=== PATIENT | female | born 1975 ===

== ENCOUNTER 2018-03-26 06:51 | Day surgery (SDC) | payer OTHER ==
[2018-03-26 07:11] VITALS: BMI 33.8
[2018-03-26] MEDS ORDERED: Propofol 10 mg/ml Inj (20 ML) ONE ×2 (08:24→08:37)
[2018-03-26] MEDS ORDERED: Lactated Ringer's 500 ML IV SCH (08:30)
[2018-03-26] MEDS ORDERED: Lactated Ringer's 1,000 ML IV ONE (08:30)
--- NOTE | 2018-03-26 08:31 | CP.SDSHP ---
Same Day Surgery H & P - History Proposed Procedure: egd Pre-Op Diagnosis: see notes - Previous Medical/Surgical History Misc: Other Pain: 4.Moderate Pain - Allergies Allergies: Allergies No Known Allergies Allergy (Verified 03/26/18 07:11) - Physical Exam General Appearance: n Vital Signs: Vital Signs 03/26/18 07:19 Temperature 98.2 F Pulse Rate 73 Respiratory 16 Rate Blood Pressure 131/82 O2 Sat by Pulse 100 Oximetry Mental Status: Alert & Oriented x3 Neuro: WNL Heart: WNL Lungs: WNL GI: Other - {Optional Preform as Required} Breast: WNL Abdomen: Other Rectal: Other Integument: WNL : WNL Ortho: Other ENT: WNL - Impression Pt. Evaluated Today:Candidate for Anesthesia & Procedure: Yes - Date & Time Time: 08:30 Short Stay Discharge - Short Stay Discharge Admitting Diagnosis/Reason for Visit: DYSPEPSIA / NAUSEA Disposition: HOME/ ROUTINE
[2018-03-26] MEDS ORDERED: Belladonna-Phenobarbital PO STA ×2 (08:33→09:56)
--- NOTE | 2018-03-26 08:34 | CP.SDSHP ---
Same Day Surgery H & P - History Proposed Procedure: EGD Pre-Op Diagnosis: SEE NOTES - Previous Medical/Surgical History Misc: Other Pain: 4.Moderate Pain - Allergies Allergies: Allergies No Known Allergies Allergy (Verified 03/26/18 07:11) - Physical Exam General Appearance: N Vital Signs: Vital Signs 03/26/18 07:19 Temperature 98.2 F Pulse Rate 73 Respiratory 16 Rate Blood Pressure 131/82 O2 Sat by Pulse 100 Oximetry Mental Status: Alert & Oriented x3 Neuro: WNL Heart: WNL Lungs: WNL GI: Other - {Optional Preform as Required} Breast: WNL Abdomen: Other Rectal: Other Integument: WNL : WNL Ortho: WNL ENT: WNL - Impression Pt. Evaluated Today:Candidate for Anesthesia & Procedure: Yes - Date & Time Time: 08:34 Short Stay Discharge - Short Stay Discharge Admitting Diagnosis/Reason for Visit: DYSPEPSIA / NAUSEA Disposition: HOME/ ROUTINE
[2018-03-26] MEDS ORDERED: DiphenhydrAMINE 50 mg/ml Inj ONE (08:49)
[2018-03-26 09:37] VITALS: TEMP 98.8
[2018-03-26 11:01] VITALS: BP 123/72; PULSE 78; RESP 16
[2018-03-26 11:07] VITALS: O2SAT 99
== END 2018-03-26 10:50 | disposition home or self-care (01) ==
LOC: C.ENDO 06:51
PROVIDERS: ATTEND Specialist
DX: K30 Functional dyspepsia (principal); K29.70 Gastritis, unspecified, without bleeding; R11.0 Nausea
CPT/HCPCS: 43235; 84703; J0696; J1200; J2001; J2704; J2930; J7120